=== PATIENT | male | born 1980 | race Two or more races ===

== ENCOUNTER 2021-03-06 20:31 | Inpatient (IN) | payer OTHER ==
[~2021-03-06] VITALS: Ht 165.1 cm; Wt 81.1 kg
[~2021-03-06 20:31] MED LIST: ASPI81TA45 PO; ATOR-2 PO; DOXY100C15 PO; LISI-167 PO; LISI5TAB7 PO; METF500T PO; METO25TA35 PO; PRAS10TA4 PO
--- NOTE | 2021-03-06 20:55 | NUR ---
assumed care of pt. pt here for intermittent palpitations for the last couple of days. pt denies palpitations at this time. no CP no SOB. pt has long cardiac hx. pt currently resting on gurney in position of comfort. pink warm and dry. [employer] DELIVERY ASSISTANT has been to bedside fro eval. no family at bedside
[2021-03-06] MEDS ORDERED: ALLO100T30 PO (21:03)
--- NOTE | 2021-03-06 21:08 | NUR ---
pt positioning for comfort. pt updated on POC. lab at bedside to draw
[2021-03-06 21:42] LABS: BASOPHILS % (AUTO) 1 % (0-1); EOSINOPHILS % (AUTO) 3 % (1-7); LYMPHOCYTES % (AUTO) 32 % (22-44); MEAN CORPUSCULAR HEMOGLOBIN 24.9 pg (27.5-34.5); MEAN CORPUSCULAR HGB CONC 31.3 g/dL (33.2-36.2); MEAN PLATELET VOLUME 9.1 fL (7.4-10.4); MONOCYTES % (AUTO) 4 % (2-9); NEUTROPHILS % (AUTO) 60 % (42-75); PLATELET COUNT 310 x10^3/uL (130-400); RED BLOOD COUNT 5.56 x10^6/uL (4.38-5.82); RED CELL DISTRIBUTION WIDTH 14.2 % (9.4-14.8)
[2021-03-06 21:43] LABS: MD NO
[2021-03-06 21:50] LABS: ALANINE AMINOTRANSFERASE 37 U/L (12-78); ALBUMIN 3.7 g/dL (3.4-5.0); ANION GAP 6 mmol/L (5-15); CALCIUM 8.8 mg/dL (8.5-10.1); CHLORIDE 103 mmol/L (98-107); CREATININE 1.02 mg/dL (0.7-1.3)
[2021-03-06 22:00] LABS: ALKALINE PHOSPHATASE 81 U/L (45-117); BILIRUBIN,TOTAL 0.4 mg/dL (0.2-1.0); FREE T4 (FREE THYROXINE) 1.19 ng/dL (0.76-1.46); TOTAL PROTEIN 7.3 g/dL (6.4-8.2)
[2021-03-06 22:03] LABS: TROPONIN I 0.188 ng/mL (0.000-0.045)
--- NOTE | 2021-03-06 22:23 | NUR ---
pt has elevated trop. pt to be admitted. pt resting on gurney in position of comfort. updated on POC
[2021-03-06] MEDS ORDERED: ASPIRIN 81 MG TABLET CHEW ONE (22:27)
[2021-03-06] MEDS ORDERED: INSULIN REGULAR 100 UNITS/ML, 3ML VIAL IV ONE (22:30)
[2021-03-06] MEDS ORDERED: SODIUM CHLORIDE FLUSH 10ML SYR IVF ONE (22:30)
[2021-03-06] MEDS ORDERED: SODIUM CHLORIDE 0.9% 1,000ML IVBOLUS ONE (22:30)
[2021-03-06] MEDS: LABETALOL 5MG/ML, 20ML IVPush ONE (22:30)
[2021-03-06] MEDS ORDERED: ASPIRIN 81 MG TABLET CHEW PO ONE (22:30)
[2021-03-06] MEDS ORDERED: ASPIRIN 81 MG TABLET EC PO ONE (22:50)
--- NOTE | 2021-03-06 23:03 | NUR ---
IV infusion completed hospitalist at bedside for eval security at bedside to assist getting pt belongings out of car
--- NOTE | 2021-03-06 23:17 | NUR ---
hospitalist evaluation continues at bedside
--- NOTE | 2021-03-06 23:37 | NUR ---
hospitalist evaluation completed. bed asignment has been recieved. attempting to call report
--- NOTE | 2021-03-06 23:41 | NUR ---
report called to [facility]
[2021-03-06 23:57] VITALS: BP 156/93
[2021-03-07] MEDS ORDERED: ONDANSETRON 2MG/ML, 2ML IVPush PRN
[2021-03-07] MEDS ORDERED: ACETAMINOPHEN 325 MG TABLET PO PRN
[2021-03-07] MEDS ORDERED: LABETALOL 5MG/ML, 20ML IVPush PRN
[2021-03-07] MEDS ORDERED: morphine SULFATE 10 MG/ML, 1ML IVPush PRN
[2021-03-07] MEDS ORDERED: ATORVASTATIN 80 MG TABLET PO SCH
[2021-03-07] MEDS: LISINOPRIL 10 MG TABLET PO SCH ×2 (00:14→08:35)
[2021-03-07] MEDS: METOPROLOL TARTRATE 25 MG TAB PO SCH ×2 (00:14→08:35)
[2021-03-07 00:35] VITALS: BP 156/93
[2021-03-07 00:38] LABS: TROPONIN I 0.194 ng/mL (0.000-0.045)
[2021-03-07] MEDS: LABETALOL 5MG/ML, 20ML IVPush ONE (01:01)
[2021-03-07 01:46] VITALS: BP 175/96
[2021-03-07 05:30] LABS: ANION GAP 4 mmol/L (5-15); CALCIUM 8.6 mg/dL (8.5-10.1); CHLORIDE 106 mmol/L (98-107)
[2021-03-07 05:34] LABS: MEAN CORPUSCULAR HEMOGLOBIN 24.9 pg (27.5-34.5); MEAN CORPUSCULAR HGB CONC 31.3 g/dL (33.2-36.2); PLATELET COUNT 286 x10^3/uL (130-400); RED BLOOD COUNT 4.99 x10^6/uL (4.38-5.82); RED CELL DISTRIBUTION WIDTH 14.1 % (9.4-14.8)
[2021-03-07 05:38] LABS: CHOL/HDL RATIO 3.1; CHOLESTEROL, TOTAL 86 mg/dL (140-239); CREATININE 0.83 mg/dL (0.7-1.3); HDL CHOL % 33 % (26-37); HDL CHOLESTEROL (DIRECT) 28 mg/dL (40-60); LDL CHOLESTEROL,CALCULATED 34 mg/dL (54-169); LDL/HDL RATIO 1.2 (0.5-3.0); TRIGLYCERIDES 119 mg/dL (50-200); TROPONIN I 0.185 ng/mL (0.000-0.045); VLDL CHOLESTEROL 24 mg/dL (0-25)
[2021-03-07 06:19] LABS: MD YES
[2021-03-07 06:26] LABS: BAND#(MANUAL) 0.14 x10^3/uL; BANDS%(MANUAL) 1 % (0-7); BASOS#(MANUAL) 0.14 x10^3/uL (0-0.1); BASOS% (MANUAL) 1 % (0-1); EOS#(MANUAL) 0.43 x10^3/uL (0.0-0.4); EOS% (MANUAL) 3 % (1-7); LYMPH#(MANUAL) 5.62 x10^3/uL (1-3.4); LYMPHS% (MANUAL) 39 % (22-44); MONOS#(MANUAL) 0.43 x10^3/uL (0.3-2.7); MONOS% (MANUAL) 3 % (2-9); SEG#(MANUAL) 7.63 x10^3/uL (1.8-6.8); SEGS% (MANUAL) 53 % (42-75)
[2021-03-07 06:27] LABS: <PLATELET ESTIMATE> ADEQUATE; <PLT MORPHOLOGY> NORMAL PLT MORPH; SMUDGE CELLS 1+
[2021-03-07 06:31] LABS: OVALOCYTES 1+; POLYCHROMASIA 1+
[2021-03-07] MEDS: INSULIN LISPRO 100 UNITS/ML, PEN SQ-INSULIN SCH ×3 (07:00→16:28)
[2021-03-07 07:20] VITALS: BP 175/97
[2021-03-07 08:32] VITALS: BP 187/105
[2021-03-07] MEDS ORDERED: ASPIRIN 81 MG TABLET EC PO SCH (09:00)
[2021-03-07] MEDS ORDERED: ALLOPURINOL 100 MG TABLET PO SCH (09:00)
[2021-03-07] MEDS ORDERED: REGADENOSON 0.4 MG/5 ML SYRINGE ONE (11:04)
[2021-03-07] MEDS ORDERED: ISOSORBIDE MONONITRATE ER 30 MG TABLET PO SCH (12:30)
[2021-03-07 13:04] VITALS: BP 158/92
[2021-03-07] MEDS ORDERED: ISOS30TA8 PO (14:53)
== END 2021-03-07 18:15 | disposition home or self-care (01) | DRG 282 ==
LOC: ED 22:15 → EDIP 22:17 → 5SO 23:51 → DCLOUNGE 03-07 17:47
PROVIDERS: ADMIT Family Medicine; ATTEND Internal Medicine
DX: I21.4 Non-ST elevation (NSTEMI) myocardial infarction (principal); E11.65 Type 2 diabetes mellitus with hyperglycemia; E66.9 Obesity, unspecified; E78.5 Hyperlipidemia, unspecified; F17.200 Nicotine dependence, unspecified, uncomplicated; I10 Essential (primary) hypertension; Z68.29 Body mass index [BMI] 29.0-29.9, adult; Z95.5 Presence of coronary angioplasty implant and graft; Z82.49 Family history of ischemic heart disease and other diseases of the circulatory system; Z83.3 Family history of diabetes mellitus
CPT/HCPCS: 36415; 71045; 78452; 80048; 80053; 80061; 82962; 83036; 83735; 83880; 84439; 84443; 84484; 85025; 93005; 93017; 93306; 99285; 99406; G0378; J1815; J2785; A9502; J7030